=== PATIENT | female | born 1975 | race Caucasian/White ===

== ENCOUNTER 2019-07-30 20:42 | Emergency (ER) | payer BC ==
--- NOTE | 2019-07-30 21:02 | ERPHSYRPT ---
- History of Present Illness Time Seen by Provider: 07/30/19 20:50 Historian: patient, family Exam Limitations: clinical condition Physician History: 43 y/o white female presents with 2 day h/o epigastric abd pain with radiation into back. pt seen by pcp and flu ruled out. pt has never had an abd surgery. no prior episodes. no n/v/d. not related to food intake. pt has a gb u/s scheduled next friday. Timing/Duration: day(s) (2) Quality: aching, pressure Abdominal Pain Onset Location: epigastric Pain Radiation: back Severity of Pain-Max: moderate Severity of Pain-Current: moderate Modifying Factors: Improves With: nothing Previous symptoms: no prior history Allergies/Adverse Reactions: No Known Drug Allergies Allergy (Verified 07/30/19 21:09) Hx Influenza Vaccination/Date Given: Yes Hx Pneumococcal Vaccination/Date Given: No - Review of Systems Constitutional: No Symptoms Eyes: No Symptoms Ears, Nose, & Throat: No Symptoms Respiratory: No Symptoms Cardiac: No Symptoms Abdominal/Gastrointestinal: Abdominal Pain Genitourinary Symptoms: No Symptoms Musculoskeletal: No Symptoms Skin: No Symptoms Neurological: No Symptoms Psychological: No Symptoms Endocrine: No Symptoms Hematologic/Lymphatic: No Symptoms Immunological/Allergic: No Symptoms All Other Systems: Reviewed and Negative - Past Medical History Pertinent Past Medical History: Yes Neurological History: No Pertinent History ENT History: No Pertinent History Cardiac History: No Pertinent History Respiratory History: No Pertinent History Endocrine Medical History: No Pertinent History Musculoskeletal History: No Pertinent History GI Medical History: No Pertinent History History: No Pertinent History Psycho-Social History: No Pertinent History Female Reproductive Disorders: No Pertinent History - Past Surgical History Past Surgical History: No Neuro Surgical History: No Pertinent History Cardiac: No Pertinent History Respiratory: No Pertinent History Gastrointestinal: No Pertinent History Genitourinary: No Pertinent History Musculoskeletal: No Pertinent History Female Surgical History: No Pertinent History - Social History Smoking Status: Never smoker Exposure to second hand smoke: No Drug Use: none Patient Lives Alone: No - Nursing Vital Signs Nursing Vital Signs: Initial Vital Signs Temperature 98.8 F 07/30/19 20:49 Pulse Rate 118 H 07/30/19 20:49 Respiratory Rate 20 07/30/19 20:49 Blood Pressure 126/85 07/30/19 20:49 O2 Sat by Pulse Oximetry 84 L 07/30/19 20:49 Pain Scale Pain Intensity 2 - Physical Exam General Appearance: moderate distress, alert, anxiety Eye Exam: PERRL/EOMI, eyes nml inspection Ears, Nose, Throat Exam: normal ENT inspection, moist mucous membranes Neck Exam: normal inspection, non-tender, supple, full range of motion Respiratory Exam: normal breath sounds, lungs clear, airway intact, No chest tenderness, No respiratory distress Cardiovascular Exam: regular rate/rhythm, normal heart sounds, normal peripheral pulses Gastrointestinal/Abdomen Exam: soft, normal bowel sounds, tenderness (epigastric ), No guarding Pelvic Exam: not done Rectal Exam: not done Back Exam: normal inspection, normal range of motion, No CVA tenderness, No vertebral tenderness Extremity Exam: normal inspection, normal range of motion, pelvis stable Neurologic Exam: alert, oriented x 3, 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, 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 Skin Exam: normal color, warm, dry Lymphatic Exam: No adenopathy SpO2 Interpretation: normal O2 Delivery: Room Air - Course Nursing assessment & vital signs reviewed: Yes Ordered Tests: Active Orders 24 hr Category Date Time Status IV Insertion STAT Care 07/30/19 21:03 Active ABDOMEN AND PELVIS W/0 CONTRAS [CT] Stat Exams 07/30/19 21:05 Taken AMYLASE Stat Lab 07/30/19 21:10 Completed CBC W DIFF Stat Lab 07/30/19 21:10 Completed CMP Stat Lab 07/30/19 21:10 Completed CULTURE,URINE Stat Lab 07/30/19 20:52 Received HCG QUALITATIVE,SERUM Stat Lab 07/30/19 21:10 Completed LIPASE Stat Lab 07/30/19 21:10 Completed Lactic Acid Stat Lab 07/30/19 21:03 Results UA W/RFX UR CULTURE Stat Lab 07/30/19 20:52 Completed Medication Summary Discontinued Medications Generic Name Dose Route Start Last Admin Trade Name Freq PRN Reason Stop Dose Admin Al Hydrox/Mg Hydrox/Simethicone Confirm 07/30/19 21:09 Maalox Es 30 Ml Unit Dose Administered 07/30/19 21:10 Dose 30 ml .ROUTE .STK-MED ONE Hydromorphone HCl 1 mg 07/30/19 21:03 07/30/19 21:14 Hydromorphone 1 Mg/Ml Ampule IV 07/30/19 21:04 1 mg STAT ONE Administration Hydromorphone HCl Confirm 07/30/19 21:08 Hydromorphone 1 Mg/Ml Ampule Administered 07/30/19 21:09 Dose 1 mg .ROUTE .STK-MED ONE Sodium Chloride 1,000 mls @ 999 mls/hr 07/30/19 21:03 07/30/19 22:13 Sodium Chloride 0.9% 1000 Ml IV 07/30/19 22:03 Infused .Q1H1M STA Infusion Sodium Chloride Confirm 07/30/19 21:09 Sodium Chloride 0.9% 1000 Ml Administered 07/30/19 21:10 Dose 1,000 mls @ ud .ROUTE .STK-MED ONE Sodium Chloride 1,000 mls @ 999 mls/hr 07/30/19 22:05 07/30/19 22:12 Sodium Chloride 0.9% 1000 Ml IV 07/30/19 23:05 999 mls/hr .Q1H1M STA Administration Sodium Chloride Confirm 07/30/19 22:11 Sodium Chloride 0.9% 1000 Ml Administered 07/30/19 22:12 Dose 1,000 mls @ ud .ROUTE .STK-MED ONE Lidocaine HCl Confirm 07/30/19 21:09 Xylocaine Hcl Viscous * Administered 07/30/19 21:10 Dose 15 ml .ROUTE .STK-MED ONE Magnesium Hydroxide 45 ml 07/30/19 21:03 07/30/19 21:15 Gi Cocktail 45 Ml (Maalox/Lidocaine) PO 07/30/19 21:04 45 ml STAT ONE Administration Ondansetron HCl 4 mg 07/30/19 21:03 07/30/19 21:14 Zofran 4 Mg/2 Ml Vial IV 07/30/19 21:04 4 mg STAT ONE Administration Ondansetron HCl Confirm 07/30/19 21:08 Zofran 4 Mg/2 Ml Vial Administered 07/30/19 21:09 Dose 4 mg .ROUTE .STK-MED ONE Lab/Rad Data: Laboratory Result Diagrams 07/30/19 21:10 07/30/19 21:10 Laboratory Results 07/30/19 07/30/19 07/30/19 Range/Units 21:10 21:10 21:10 WBC 12.8 H (4.0-10.5) K/mm3 RBC 4.41 (4.1-5.4) M/mm3 Hgb 14.0 (12.0-16.0) gm/dl Hct 41.8 (35-47) % MCV 94.8 (78-100) fl MCH 31.7 (26-32) pg MCHC 33.5 (32-36) g/dl RDW 12.0 (11.5-14.0) % Plt Count 227 (150-450) K/mm3 MPV 10.2 (7.5-11.0) fl Gran % 68.4 H (36.0-66.0) % Eos # (Auto) 0.17 (0-0.5) Absolute Lymphs (auto) 2.62 (1.0-4.6) Absolute Monos (auto) 1.22 (0.0-1.3) Lymphocytes % 20.5 L (24.0-44.0) % Monocytes % 9.6 (0.0-12.0) % Eosinophils % 1.3 (0.00-5.0) % Basophils % 0.2 (0.0-0.4) % Absolute Granulocytes 8.74 H (1.4-6.9) Basophils # 0.02 (0-0.4) Sodium 139 (137-145) mmol/L Potassium 3.4 L (3.5-5.1) mmol/L Chloride 103 (98-107) mmol/L Carbon Dioxide 26 (22-30) mmol/L Anion Gap 13.8 (5-15) MEQ/L BUN 9 (7-17) mg/dL Creatinine 0.65 (0.52-1.04) mg/dL Estimated GFR > 60.0 ML/MIN Glucose 87 (74-106) mg/dL Lactic Acid (0.4-2.0) Calcium 9.2 (8.4-10.2) mg/dL Total Bilirubin 1.10 (0.2-1.3) mg/dL AST 31 (14-36) U/L ALT 24 (0-35) U/L Alkaline Phosphatase 76 (38-126) U/L Serum Total Protein 8.7 H (6.3-8.2) g/dL Albumin 4.7 (3.5-5.0) g/dL Amylase 286 H (30-110) U/L Lipase 1680 H (23-300) U/L Serum , Qual NEGATIVE (Negative) Urine Color (YELLOW) Urine Appearance (CLEAR) Urine pH (5-6) Ur Specific Henderson (1.005-1.025) Urine Protein (Negative) Urine Ketones (NEGATIVE) Urine Blood (0-5) Mike/ul Urine Nitrite (NEGATIVE) Urine Bilirubin (NEGATIVE) Urine Urobilinogen (0-1) mg/dL Ur Leukocyte Esterase (NEGATIVE) Urine WBC (Auto) (0-5) /HPF Urine RBC (Auto) (0-2) /HPF U Epithel Cells (Auto) (FEW) /HPF Urine Bacteria (Auto) (NEGATIVE) /HPF Urine Mucus (Auto) (NEGATIVE) /HPF Urine Culture Reflexed (NO) Urine Glucose (NEGATIVE) mg/dL 07/30/19 07/30/19 Range/Units 21:03 20:52 WBC (4.0-10.5) K/mm3 RBC (4.1-5.4) M/mm3 Hgb (12.0-16.0) gm/dl Hct (35-47) % MCV (78-100) fl MCH (26-32) pg MCHC (32-36) g/dl RDW (11.5-14.0) % Plt Count (150-450) K/mm3 MPV (7.5-11.0) fl Gran % (36.0-66.0) % Eos # (Auto) (0-0.5) Absolute Lymphs (auto) (1.0-4.6) Absolute Monos (auto) (0.0-1.3) Lymphocytes % (24.0-44.0) % Monocytes % (0.0-12.0) % Eosinophils % (0.00-5.0) % Basophils % (0.0-0.4) % Absolute Granulocytes (1.4-6.9) Basophils # (0-0.4) Sodium (137-145) mmol/L Potassium (3.5-5.1) mmol/L Chloride (98-107) mmol/L Carbon Dioxide (22-30) mmol/L Anion Gap (5-15) MEQ/L BUN (7-17) mg/dL Creatinine (0.52-1.04) mg/dL Estimated GFR ML/MIN Glucose (74-106) mg/dL Lactic Acid 2.2 H (0.4-2.0) Calcium (8.4-10.2) mg/dL Total Bilirubin (0.2-1.3) mg/dL AST (14-36) U/L ALT (0-35) U/L Alkaline Phosphatase (38-126) U/L Serum Total Protein (6.3-8.2) g/dL Albumin (3.5-5.0) g/dL Amylase (30-110) U/L Lipase (23-300) U/L Serum , Qual (Negative) Urine Color DARK YELLOW (YELLOW) Urine Appearance CLOUDY (CLEAR) Urine pH 7.0 (5-6) Ur Specific Henderson 1.029 (1.005-1.025) Urine Protein 30 (Negative) Urine Ketones NEGATIVE (NEGATIVE) Urine Blood NEGATIVE (0-5) Mike/ul Urine Nitrite NEGATIVE (NEGATIVE) Urine Bilirubin NEGATIVE (NEGATIVE) Urine Urobilinogen 2 (0-1) mg/dL Ur Leukocyte Esterase TRACE (NEGATIVE) Urine WBC (Auto) 0-2 (0-5) /HPF Urine RBC (Auto) 0-2 (0-2) /HPF U Epithel Cells (Auto) MODERATE (FEW) /HPF Urine Bacteria (Auto) NONE (NEGATIVE) /HPF Urine Mucus (Auto) SLIGHT (NEGATIVE) /HPF Urine Culture Reflexed YES (NO) Urine Glucose NEGATIVE (NEGATIVE) mg/dL - Progress Progress: improved Progress Note: 07/30/19 23:10 ct abd/pelvis-mild peripancreatic stranding. right ovarian cyst. trace free fluid i had long discussion with patient and family. we told pt we do not have beds and pt would require transfer. pt stated she did not want transfer. she wants to go home. i d/w pt and spouse regarding her dx, risks of not being an in hospital pt including but not limited to worsening condition, possible . i also discussed with her the benefits of inpt tx including pain and nausea control, ivf, repeat labs. she will sign ama form. i will send pt home with rx for zofran, dilaudid tabs and rx for repeat labs in 24 hours. pt was made aware to consume only a clear liquid diet for 24 hours. she is to return to ED for worsening sx. Counseled pt/family regarding: lab results, diagnosis, need for follow-up, rad results - Departure Departure Disposition: Home Clinical Impression: Pancreatitis Condition: Stable Critical Care Time: No Referrals: RJ DOWELL [Primary Care Provider] - Additional Instructions: clear liquids only for 24 hours. return to ED for worsening symptoms. return tomorrow for repeat lab draw. Prescriptions: Ondansetron HCl [Zofran] 4 mg PO TID PRN #10 tablet PRN Reason: Nausea/Vomiting
[2019-07-30] MEDS ORDERED: Zofran 4 MG/2 ML VIAL IV ONE (21:03)
[2019-07-30] MEDS ORDERED: GI COCKTAIL 45 ML (Maalox/Lidocaine) PO ONE (21:03)
[2019-07-30] MEDS ORDERED: Sodium Chloride 0.9% 1000 ML 1,000 ML IV STA ×2 (21:03→22:05)
[2019-07-30] MEDS ORDERED: Hydromorphone 1 mg/ml Ampule IV ONE ×2 (21:03→23:29)
[2019-07-30] MEDS ORDERED: Zofran 4 MG/2 ML VIAL ONE (21:08)
[2019-07-30] MEDS ORDERED: Hydromorphone 1 mg/ml Ampule ONE ×2 (21:08→23:34)
[2019-07-30] MEDS ORDERED: Sodium Chloride 0.9% 1000 ML 1,000 ML ONE ×2 (21:09→22:11)
[2019-07-30] MEDS ORDERED: MAALOX ES 30 ML UNIT DOSE ONE (21:09)
[2019-07-30] MEDS ORDERED: XYLOCAINE HCl Viscous ONE (21:09)
[2019-07-30 21:15] LABS: Lactic Acid 2.2 (0.4-2.0)
[2019-07-30 21:23] LABS: Absolute Neutrophil Ct (ANC) 8.74 (1.4-6.9); BASOPHIL % 0.2 % (0.0-0.4); Basophil (Absolute #) 0.02 (0-0.4); Eosinophil % 1.3 % (0.00-5.0); Eosinophil (Absolute #) 0.17 (0-0.5); Hematocrit 41.8 % (35-47); Lymphocyte (Absolute #) 2.62 (1.0-4.6); Lymphocytes % 20.5 % (24.0-44.0); Mean Cell Volume 94.8 fl (78-100); Mean Corpuscular Hemoglobin 31.7 pg (26-32); Mean Corpuscular Hgb Concent. 33.5 g/dl (32-36); Mean Platelet Volume 10.2 fl (7.5-11.0); Monocyte (Absolute #) 1.22 (0.0-1.3); Monocytes % 9.6 % (0.0-12.0); Neutrophil % 68.4 % (36.0-66.0); Platelet Count 227 K/mm3 (150-450); Red Blood Count 4.41 M/mm3 (4.1-5.4); White Blood Count 12.8 K/mm3 (4.0-10.5)
[2019-07-30 21:28] LABS: Appearance CLOUDY (CLEAR); Bilirubin NEGATIVE (NEGATIVE); Blood NEGATIVE Ery/ul (0-5); Epithelial Cells MODERATE /HPF (FEW); Glucose NEGATIVE (NEGATIVE); Ketones NEGATIVE (NEGATIVE); Leukocyte Esterase TRACE (NEGATIVE); Mucus SLIGHT /HPF (NEGATIVE); Nitrite NEGATIVE (NEGATIVE); Protein,Urine Dip 30 (Negative); RBC 0-2 /HPF (0-2); Specific Gravity 1.029 (1.005-1.025); Urobilinogen 2 mg/dL (0-1); WBC 0-2 /HPF (0-5)
[2019-07-30 21:34] LABS: ALBUMIN 4.7 g/dL (3.5-5.0); ALKALINE PHOSPHATASE 76 U/L (38-126); AMYLASE 286 U/L (30-110); ANION GAP 13.8 MEQ/L (5-15); BLOOD UREA NITROGEN 9 mg/dL (7-17); CHLORIDE 103 mmol/L (98-107); Calcium 9.2 mg/dL (8.4-10.2); Carbon Dioxide 26 mmol/L (22-30); Creatinine 1 0.65 mg/dL (0.52-1.04); Glucose 87 mg/dL (74-106); LIPASE 1680 U/L (23-300); Potassium 3.4 mmol/L (3.5-5.1); SGOT/AST 31 U/L (14-36); SGPT/ALT 24 U/L (0-35); SODIUM 139 mmol/L (137-145); Total Protein 8.7 g/dL (6.3-8.2)
[2019-07-30] MEDS ORDERED: Dilaudid 4 MG Tab PO PRN (23:27)
[2019-07-30 23:31] VITALS: BP 116/72
[2019-07-30] MEDS ORDERED: Dilaudid 4 MG Tab ONE (23:35)
[2019-07-30 23:54] VITALS: PULSE 101; O2SAT 98
--- NOTE | 2019-07-31 07:07 | XRAY ---
Indication: Epigastric pain 2 days. Loss of appetite. Multiple contiguous axial images obtained through the abdomen and pelvis without contrast as ordered. Comparison: None Lung bases demonstrates minimal bilateral dependent atelectasis. No infiltrate or effusion. Heart is not enlarged. Noncontrasted stomach and bowel loops appear nonobstructed. Normal appendix. Radiopacity throughout the colon presumed ingested medication/placement. There is moderate scattered colonic fecal debris throughout. Uterus demonstrates IUD in situ. 2.2 cm right ovary cyst. Tiny cul-de-sac free fluid presumed physiologic from rupture/leaking cyst. No free air. Remaining liver, gallbladder, pancreas, spleen, adrenal glands, kidneys, ureters, bladder, uterus, and aorta appear unremarkable for noncontrast exam. Osseous structures intact. Impression: 1. Diffuse fecal stasis without obstruction. 2. 2.2 cm right ovary cyst and tiny cul-de-sac fluid presumed physiologic. 3. Remaining CT abdomen/pelvis without contrast exam is negative. Comment: Preliminary interpretation was made by [facility]. No critical discrepancy.
== END 2019-07-30 23:58 | disposition home or self-care (01) ==
LOC: ED 20:42
DX: K85.90 Acute pancreatitis without necrosis or infection, unspecified (principal)
CPT/HCPCS: 36000; 36415; 74176; 80053; 81001; 81025; 82150; 83605; 83690; 85025; 87086; 96374; 96375; 96376; 99284; J1170; J2405; A9270-GY

== ENCOUNTER 2019-08-27 05:45 | Day surgery (SDC) | payer BC ==
[2019-08-27] MEDS ORDERED: Lactated Ringers 1,000 ML IV SCH (06:30)
[2019-08-27] MEDS ORDERED: DIPRIVAN 200 MG/20 ML IV ONE (07:26)
[2019-08-27] MEDS ORDERED: Ketamine HCl 50 MG/ML ONE (07:26)
--- NOTE | 2019-08-27 08:12 | OP ---
SURGERY DATE/TIME: 08/27/201928 PREOPERATIVE DIAGNOSIS: Epigastric pain. POSTOPERATIVE DIAGNOSIS: Mild gastritis and small island of Goldsmith's esophagus. PROCEDURE: Esophagogastroduodenoscopy with cold forceps biopsy. SURGEON: Dr. Bishop. ANESTHESIA: Medications were given by the anesthesia department. HISTORY: The patient is a 43 year old white female presenting now for endoscopic evaluation. She has had epigastric pain. She was noted to have a slightly abnormal gallbladder HIDA scan with ejection fraction of 25%. We felt that there may be other reasons for her pain and felt that she needed endoscopic evaluation. The patient was apprised of the risks of the procedure including the risk of perforation, phlebitis, untoward reaction to medication, bleeding and missed lesions. The patient verbalized her understanding and desired to have the procedure performed. DESCRIPTION OF PROCEDURE: The patient was given the medications by the anesthesia department. She had continuous pulse oximetry, ECG monitoring, intermittent blood pressure monitoring and tidal CO2 monitoring during the examination. She was placed in the left lateral decubitus position. A bite block was placed and the flexible Olympus gastroscope was used to intubate the oropharynx. A view of the larynx was obtained and was normal. The scope was easily introduced in the esophagus which appeared normal to the gastroesophageal junction where there appeared to be a tongue of Goldsmith's type esophagus present. The scope was passed in the stomach where normal gastric rugal folds were seen and these distended nicely with insufflation of air. The scope was passed along the greater curvature of the stomach to the antrum. The pylorus was encountered and intubated. Duodenum inspected and found to be normal. The scope is withdrawn towards the stomach. Again, a retroflex view was obtained of the lesser curvature, fundus and cardia regions of the stomach and these appeared to be essentially normal. The scope was then redirected towards the gastric antrum where biopsies were obtained to rule out the presence of Helicobacter pylori-type organisms. Withdrawing from the gastroesophageal junction where biopsies were obtained to rule out any dysplasia and what appeared to be a Goldsmith's type metaplasia. The scope was then removed from the patient who tolerated the procedure well and was sent back to the hospital [facility] in good condition.
[2019-08-27 08:34] VITALS: O2SAT 99
[2019-08-27 08:35] VITALS: BP 110/67; PULSE 70
== END 2019-08-27 08:40 | disposition home or self-care (01) ==
LOC: SDC 05:45
PROVIDERS: ATTEND Family Medicine
DX: K29.70 Gastritis, unspecified, without bleeding (principal); K22.70 Barrett's esophagus without dysplasia; R10.13 Epigastric pain
CPT/HCPCS: 84703; 88305; 88312; J2704

== ENCOUNTER 2023-01-04 03:47 | Emergency (ER) | payer BC ==
[2023-01-04 04:32] LABS: Absolute Neutrophil Ct (ANC) 9.15 x10^3/uL (1.4-6.9); BASOPHIL % 0.3 % (0.0-0.4); Basophil (Absolute #) 0.04 x10^3/uL (0-0.4); Eosinophil % 1.3 % (0.00-5.0); Eosinophil (Absolute #) 0.16 x10^3/uL (0-0.5); Hemoglobin 14.6 g/dL (12.0-16.0); IMMATURE GRAN # 0.06 x10^3u/L (0.00-0.03); IMMATURE GRAN % 0.5 % (0.00-0.4); Lymphocyte (Absolute #) 1.86 x10^3/uL (1.0-4.6); Mean Cell Volume 93.1 fL (78-100); Mean Corpuscular Hemoglobin 31.6 pg (26-32); Mean Platelet Volume 9.7 fL (7.5-11.0); Monocyte (Absolute #) 1.09 x10^3/uL (0.0-1.3); Monocytes % 8.8 % (0.0-12.0); Neutrophil % 74.1 % (36.0-66.0); Platelet Count 255 x10^3/uL (150-450); Red Blood Count 4.62 x10^6/uL (4.1-5.4); Red Cell Distribution Width 11.9 % (11.5-14.0); White Blood Count 12.4 x10^3/uL (4.0-10.5)
[2023-01-04 04:39] LABS: Appearance Clear (Clear); Bacteria Rare /HPF (None Seen); Bilirubin Negative (Negative); Blood Negative (Negative); Epithelial Cells Rare /HPF (None Seen); Glucose, Urine Negative (Negative); Hyaline Casts NONE SEEN /LPF (0-2); Ketones 80 (Negative); Leukocyte Esterase Negative (Negative); Nitrite Negative (Negative); Ph 5.5 (4.6-8.0); Protein,Urine Dip Negative (Negative); RBC 0-2 /HPF (0-5); Specific Gravity 1.025 (1.005-1.030); WBC 0-2 /HPF (0-5)
[2023-01-04 04:41] LABS: ADD URINE CULTURE? NO (NO)
[2023-01-04] MEDS ORDERED: Hydromorphone 1 mg/ml Injection IV ONE (04:43)
[2023-01-04] MEDS ORDERED: Zofran 4 MG/2 ML VIAL IV ONE (04:43)
[2023-01-04] MEDS ORDERED: PROTONIX 40 MG IV IV ONE ×2 (04:43→04:53)
[2023-01-04] MEDS ORDERED: Sodium Chloride 0.9% 1000 ML 1,000 ML IV STA ×2 (04:43→05:55)
--- NOTE | 2023-01-04 04:43 | ERPHSYRPT ---
- History of Present Illness Time Seen by Provider: 01/04/23 04:05 Historian: patient, family Exam Limitations: no limitations Patient Subjective Stated Complaint: pt states I have had this pain since friday. I went to [facility] yesterday and waiting the lab results Triage Nursing Assessment: pt ambulated into the er; pt is axo x4; pt is tearful and irritable; c/o epigastric pain; denies V/D; c/o nausea; hypertension; skin PDW; no respiratory distress present Physician History: This is a 47-year-old white female patient of nurse practitioner Armando who has had epigastric Michele pain for 3 days. Patient has a history of gastroesophageal reflux disease as well as anxiety/depression symptoms. 3 days ago, patient began having the cramping epigastric abdominal pain with nausea but no vomiting or diarrhea. She denies shortness of breath. She denies chest pain. Yesterday, 01/03/2023, patient was seen in [facility] where she was found to have an amylase of 113 and lipase of 413. Patient still has her gallbladder in place. The pain was getting worse so she came into the emergency department for evaluation and management. Timing/Duration: day(s) (3) Activities at Onset: none Quality: sharpness, stabbing Abdominal Pain Onset Location: epigastric Pain Radiation: no radiation Severity of Pain-Max: moderate Severity of Pain-Current: moderate Modifying Factors: Improves With: other (Nausea without vomiting) Associated Symptoms: loss of appetite, nausea, No chest pain, No fever/chills, No vomiting Previous symptoms: no prior history, no recent treatment Allergies/Adverse Reactions: No Known Drug Allergies Allergy (Verified 01/04/23 03:55) Home Medications: Omeprazole 40 mg PO DAILY 10/17/21 [History] Bupropion HCl Xl 150 mg [Wellbutrin XL 150 MG] 150 mg PO DAILY 01/04/23 [History] Hx Tetanus, Diphtheria Vaccination/Date Given: No Hx Influenza Vaccination/Date Given: Yes Hx Pneumococcal Vaccination/Date Given: No Travel Risk - International Travel Have you traveled outside of the country in past 3 weeks: No - Coronavirus Screening Are you exhibiting any of the following symptoms?: No Close contact with a COVID-19 positive Pt in past 14-21 Days: No - Vaccine Status Have you recieved a Covid-19 vaccination: No - Review of Systems Constitutional: No Symptoms Eyes: No Symptoms Ears, Nose, & Throat: No Symptoms Respiratory: No Symptoms Cardiac: No Symptoms Abdominal/Gastrointestinal: Abdominal Pain (Epigastric pain), Nausea, Appetite Changes, No Vomiting, No Diarrhea Genitourinary Symptoms: No Symptoms Musculoskeletal: No Symptoms Skin: No Symptoms Neurological: No Symptoms Psychological: No Symptoms Endocrine: No Symptoms Hematologic/Lymphatic: No Symptoms Immunological/Allergic: No Symptoms All Other Systems: Reviewed and Negative - Past Medical History Pertinent Past Medical History: Yes Neurological History: No Pertinent History ENT History: No Pertinent History Cardiac History: No Pertinent History Respiratory History: No Pertinent History Endocrine Medical History: No Pertinent History Musculoskeletal History: No Pertinent History GI Medical History: Diverticulitis, GERD, Pancreatitis History: No Pertinent History Psycho-Social History: Depression Female Reproductive Disorders: Other Other Medical History: sludge in gallbladder, iud - Past Surgical History Past Surgical History: Yes Neuro Surgical History: No Pertinent History Cardiac: No Pertinent History Respiratory: No Pertinent History Gastrointestinal: No Pertinent History Genitourinary: No Pertinent History Musculoskeletal: No Pertinent History Female Surgical History: Other Other Surgical History: LEEP , cscope - Social History Smoking Status: Never smoker Exposure to second hand smoke: No Drug Use: none Patient Lives Alone: No - Female History Hx Now: No - Nursing Vital Signs Nursing Vital Signs: Initial Vital Signs Temperature 97.1 F 01/04/23 03:56 Pulse Rate 114 H 01/04/23 03:56 Respiratory Rate 20 01/04/23 03:56 Blood Pressure 174/113 01/04/23 03:56 O2 Sat by Pulse Oximetry 98 01/04/23 03:56 Pain Scale Pain Intensity 4 - Physical Exam General Appearance: mild distress, alert, anxiety Eye Exam: PERRL/EOMI, eyes nml inspection Ears, Nose, Throat Exam: normal ENT inspection, moist mucous membranes Neck Exam: normal inspection, non-tender, supple, full range of motion Respiratory Exam: normal breath sounds, lungs clear, airway intact, No chest te nderness, No respiratory distress Cardiovascular Exam: tachycardia Gastrointestinal/Abdomen Exam: soft, normal bowel sounds, tenderness (Epigastric), guarding (Epigastric to palpation), No rebound Pelvic Exam: not done Rectal Exam: not done Back Exam: normal inspection, normal range of motion, No CVA tenderness, No vertebral tenderness Extremity Exam: normal inspection, normal range of motion, pelvis stable Neurologic Exam: alert, oriented x 3, cooperative, 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 as tested, normal mood/affect, nml cerebellar function, nml station & gait, sensation nml Skin Exam: normal color, warm, dry Lymphatic Exam: No adenopathy SpO2 Interpretation: normal SpO2: 97 O2 Delivery: Room Air - Course Nursing assessment & vital signs reviewed: Yes Ordered Tests: Active Orders 24 hr Category Date Time Status IV Insertion STAT Care 01/04/23 04:43 Active ABDOMEN AND PELVIS W/0 CONTRAS [CT] Stat Exams 01/04/23 04:20 Completed AMYLASE Stat Lab 01/04/23 04:29 Completed CBC W DIFF Stat Lab 01/04/23 04:29 Completed CMP Stat Lab 01/04/23 04:29 Completed LIPASE Stat Lab 01/04/23 04:29 Completed UA W/RFX UR CULTURE Stat Lab 01/04/23 04:29 Completed Medication Summary Discontinued Medications Generic Name Dose Route Start Last Admin Trade Name Octavioq PRN Reason Stop Dose Admin Hydromorphone HCl 1 mg 01/04/23 04:43 01/04/23 04:57 Hydromorphone 1 Mg/1ml Inj IV 01/04/23 04:44 1 mg STAT ONE Administration Hydromorphone HCl Confirm 01/04/23 04:53 Hydromorphone 1 Mg/1ml Inj Administered 01/04/23 04:54 Dose 1 mg .ROUTE .STK-MED ONE Sodium Chloride 1,000 mls @ 999 mls/hr 01/04/23 04:43 01/04/23 04:56 Sodium Chloride 0.9% 1000 Ml IV 01/04/23 05:43 999 mls/hr .Q1H1M STA Administration Sodium Chloride Confirm 01/04/23 04:54 Sodium Chloride 0.9% 1000 Ml Administered 01/04/23 04:55 Dose 1,000 mls @ ud .ROUTE .STK-MED ONE Ondansetron HCl 4 mg 01/04/23 04:43 01/04/23 04:56 Ondansetron Hcl 4 Mg/2 Ml Vial IV 01/04/23 04:44 4 mg STAT ONE Administration Ondansetron HCl Confirm 01/04/23 04:53 Ondansetron Hcl 4 Mg/2 Ml Vial Administered 01/04/23 04:54 Dose 4 mg .ROUTE .STK-MED ONE Pantoprazole Sodium 40 mg 01/04/23 04:43 01/04/23 04:56 Pantoprazole 40 Mg Vial IV 01/04/23 04:44 40 mg STAT ONE Administration Pantoprazole Sodium Confirm 01/04/23 04:53 Pantoprazole 40 Mg Vial Administered 01/04/23 04:54 Dose 40 mg IV .STK-MED ONE Lab/Rad Data: Laboratory Result Diagrams 01/04/23 04:29 01/04/23 04:29 Laboratory Results 01/04/23 01/04/23 01/04/23 Range/Units 04:29 04:29 04:29 WBC 12.4 H (4.0-10.5) x10^3/uL RBC 4.62 (4.1-5.4) x10^6/uL Hgb 14.6 (12.0-16.0) g/dL Hct 43.0 (35-47) % MCV 93.1 (78-100) fL MCH 31.6 (26-32) pg MCHC 34.0 (32-36) g/dL RDW 11.9 (11.5-14.0) % Plt Count 255 (150-450) x10^3/uL MPV 9.7 (7.5-11.0) fL Gran % 74.1 H (36.0-66.0) % Immature Gran % (Auto) 0.5 H (0.00-0.4) % Nucleat RBC Rel Count 0.0 (0.00-0.1) % Eos # (Auto) 0.16 (0-0.5) x10^3/uL Immature Gran # (Auto) 0.06 H (0.00-0.03) x10^3u/L Absolute Lymphs (auto) 1.86 (1.0-4.6) x10^3/uL Absolute Monos (auto) 1.09 (0.0-1.3) x10^3/uL Absolute Nucleated RBC 0.00 (0.00-0.01) x10^3u/L Lymphocytes % 15.0 L (24.0-44.0) % Monocytes % 8.8 (0.0-12.0) % Eosinophils % 1.3 (0.00-5.0) % Basophils % 0.3 (0.0-0.4) % Absolute Granulocytes 9.15 H (1.4-6.9) x10^3/uL Basophils # 0.04 (0-0.4) x10^3/uL Sodium 136 L (137-145) mmol/L Potassium 3.8 (3.5-5.1) mmol/L Chloride 99 (98-107) mmol/L Carbon Dioxide 23 (22-30) mmol/L Anion Gap 17.6 H (5-15) MEQ/L BUN 12 (7-17) mg/dL Creatinine 0.62 (0.52-1.04) mg/dL Estimated GFR > 60.0 ML/MIN Glucose 132 H (74-106) mg/dL Calcium 9.0 (8.4-10.2) mg/dL Total Bilirubin 1.20 (0.2-1.3) mg/dL AST 40 H (14-36) U/L ALT 38 H (0-35) U/L Alkaline Phosphatase 87 (38-126) U/L Serum Total Protein 8.7 H (6.3-8.2) g/dL Albumin 4.6 (3.5-5.0) g/dL Amylase 157 H (30-110) U/L Lipase 984 H (23-300) U/L Urine Color Dark Yellow A (Yellow) Urine Appearance Clear (Clear) Urine pH 5.5 (4.6-8.0) Ur Specific [place] 1.025 (1.005-1.030) Urine Protein Negative (Negative) Urine Glucose (UA) Negative (Negative) mg/dL Urine Ketones 80 A (Negative) Urine Blood Negative (Negative) Urine Nitrite Negative (Negative) Urine Bilirubin Negative (Negative) Urine Urobilinogen 1.0 A (0.2) mg/dL Ur Leukocyte Esterase Negative (Negative) U Hyaline Cast (Auto) NONE SEEN (0-2) /LPF Urine Microscopic RBC 0-2 (0-5) /HPF Urine Microscopic WBC 0-2 (0-5) /HPF Ur Epithelial Cells Rare (None Seen) /HPF Urine Bacteria Rare A (None Seen) /HPF Urine Culture Reflexed NO (NO) - Progress Progress: improved, pain not gone completely Progress Note: 01/04/23 05:22 This patient's medical issue is at least moderate complexity. We are awaiting the results of her CAT scan and she may require observation and her level of complexity would increase to high complexity. The complexity of the work-up and the work-up performed is based on the review of the patient's past medical history, review of the patient's recent quick care work-up and laboratory study results, medication review, drug allergy review, history of present illness and physical findings on examination. This patient work-up includes CBC, CMP, urinalysis, amylase, lipase, CT scan of the abdomen pelvis without contrast. The patient appears to have pancreatitis. Her repeat amylase increased from 100 1357. Her lipase increased from 413-984. Her AST and ALT are slightly elevated. Patient has a normal total bilirubin and a normal alkaline phosphat ase level. We will await the results of her CAT scan of abdomen pelvis to determine final disposition. 01/04/23 05:54 The patient has no radiographic evidence of acute pancreatitis on CAT scan of the abdomen pelvis. We will discharge this patient home with instructions to decrease the diet to clear liquid to full liquid diet. We will send a prescription of Zofran and pain medication to her pharmacy. She is to call her primary care doctor on 01/06/2023 for further evaluation and management. She is to return to the emergency department if her symptoms have not improved or worsen. Counseled pt/family regarding: lab results, diagnosis, rad results Medical Desision Making - Independent Historian Additional History obtained from: Spouse - Diagnostic Testing Diagnostic test were ordered, analyzed, and reviewed by me: Yes Radiological Interpretation: Reviewed by me, Teleradiologist Report - Risk of complications The pt has a mod risk of morbidity or mortality based on: Need for prescription drug management - Departure Clinical Impression: Pancreatitis, Mild dehydration Condition: Stable Critical Care Time: No Referrals: LINDA BENDER NP [Primary Care Provider] - Follow up/PCP as directed Additional Instructions: Clear liquid to full liquid diet only. Avoid fatty greasy spicy foods. Drink plenty of clear liquids. Use your nausea medicine and pain medicine as needed. Return to the emergency department if symptoms worsen. Follow-up with your primary care physician on 01/06/2023 for further evaluation and management. Prescriptions: Ondansetron ODT 4 MG [Zofran Odt 4 mg] 4 mg PO Q6H PRN PRN #10 tablet PRN Reason: Vomiting Hydrocodone/Acetaminophen [Hydrocodone-Acetamn 7.5-325/15] 10 ml PO Q8H PRN PRN #120 ml MDD 30 ml PRN Reason: Moderate To Severe Pain
[2023-01-04 04:47] LABS: ALBUMIN 4.6 g/dL (3.5-5.0); ALKALINE PHOSPHATASE 87 U/L (38-126); AMYLASE 157 U/L (30-110); ANION GAP 17.6 MEQ/L (5-15); BLOOD UREA NITROGEN 12 mg/dL (7-17); CHLORIDE 99 mmol/L (98-107); Carbon Dioxide 23 mmol/L (22-30); Creatinine 1 0.62 mg/dL (0.52-1.04); EST GLOMERULAR FILTRATION RATE > 60.0 ML/MIN; Glucose 132 mg/dL (74-106); LIPASE 984 U/L (23-300); Potassium 3.8 mmol/L (3.5-5.1); SGOT/AST 40 U/L (14-36); SGPT/ALT 38 U/L (0-35); SODIUM 136 mmol/L (137-145); Total Protein 8.7 g/dL (6.3-8.2)
[2023-01-04] MEDS ORDERED: Zofran 4 MG/2 ML VIAL ONE (04:53)
[2023-01-04] MEDS ORDERED: Hydromorphone 1 mg/ml Injection ONE (04:53)
[2023-01-04] MEDS ORDERED: Sodium Chloride 0.9% 1000 ML 1,000 ML ONE ×2 (04:54→06:13)
[2023-01-04 05:24] VITALS: O2SAT 97
--- NOTE | 2023-01-04 05:48 | XRAY ---
CLINICAL HISTORY:pain COMPARISON:CT abdomen and pelvis dated 07/30/2019; TECHNIQUES:CT scan of the abdomen and pelvis was performed without oraI or IV contrast; FINDINGS: The liver is normal in size . No focal parenchymal abnormality. The portal vein, intrahepatic biliary radicals and the bile ducts are normal. The spleen, pancreas, adrenal glands are unremarkable. The kidneys are unremarkable. They are normal in size and shape. No calculi or hydronephrosis is seen. The gallbladder is normal. No pericholecystic fluid collection or radio dense calculi in the gall bladder. The ascending colon, the transverse colon, the descending colon, visualized small bowel loops are unremarkable. There is no evidence of significant enlargement of the mesenteric or retroperitoneal lymph nodes. The osseous structures in the lower rib cage and lumbar spine show no abnormality. The uterus and both oavries are within normal limits with no definite masses or cysts are seen. IUD is seen insitu. Small phleboli seen at the right lower pelvis likely calcified vein. IMPRESSION: No significant abnormality is noted. Electronically Signed by: Wicho Castaneda MD. (01/04/2023 04:41:58 MARITIME GUARD)
[2023-01-04 07:13] VITALS: BP 137/89; PULSE 92
== END 2023-01-04 07:13 | disposition home or self-care (01) ==
LOC: ED 03:47
DX: K85.90 Acute pancreatitis without necrosis or infection, unspecified (principal); E86.0 Dehydration; R10.13 Epigastric pain; R11.0 Nausea; Z79.891 Long term (current) use of opiate analgesic; Z79.899 Other long term (current) drug therapy
CPT/HCPCS: 36000; 36415; 74176; 80053; 81001; 82150; 83690; 85025; 96360; 96374; 96375; 99284; J1170; J2405

== ENCOUNTER 2023-04-04 22:51 | Emergency (ER) | payer BC ==
[2023-04-04 23:09] VITALS: TEMP 97.6
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
[2023-04-04] MEDS ORDERED: Sodium Chloride 0.9% 1000 ML 1,000 ML IV SCH (23:30)
[2023-04-04 23:45] LABS: Absolute Neutrophil Ct (ANC) 5.45 x10^3/uL (1.4-6.9); BASOPHIL % 0.9 % (0.0-0.4); Basophil (Absolute #) 0.07 x10^3/uL (0-0.4); Eosinophil % 6.7 % (0.00-5.0); Eosinophil (Absolute #) 0.55 x10^3/uL (0-0.5); Hematocrit 42.6 % (35-47); Hemoglobin 13.9 g/dL (12.0-16.0); IMMATURE GRAN # 0.04 x10^3u/L (0.00-0.03); IMMATURE GRAN % 0.5 % (0.00-0.4); Lymphocyte (Absolute #) 1.47 x10^3/uL (1.0-4.6); Lymphocytes % 17.9 % (24.0-44.0); Mean Corpuscular Hemoglobin 30.7 pg (26-32); Mean Corpuscular Hgb Concent. 32.6 g/dL (32-36); Mean Platelet Volume 9.9 fL (7.5-11.0); Monocyte (Absolute #) 0.64 x10^3/uL (0.0-1.3); Monocytes % 7.8 % (0.0-12.0); Neutrophil % 66.2 % (36.0-66.0); Platelet Count 227 x10^3/uL (150-450); Red Blood Count 4.53 x10^6/uL (4.1-5.4); Red Cell Distribution Width 12.2 % (11.5-14.0); White Blood Count 8.2 x10^3/uL (4.0-10.5)
[2023-04-05] LABS: ALBUMIN 4.8 g/dL (3.5-5.0); ALKALINE PHOSPHATASE 82 U/L (38-126); ANION GAP 13.8 MEQ/L (5-15); BLOOD UREA NITROGEN 19 mg/dL (7-17); CHLORIDE 101 mmol/L (98-107); Calcium 9.4 mg/dL (8.4-10.2); Carbon Dioxide 28 mmol/L (22-30); Creatinine 1 0.96 mg/dL (0.52-1.04); EST GLOMERULAR FILTRATION RATE > 60.0 ML/MIN; Glucose 102 mg/dL (74-106); Potassium 3.8 mmol/L (3.5-5.1); SGOT/AST 43 U/L (14-36); SGPT/ALT 44 U/L (0-35); SODIUM 139 mmol/L (137-145)
[2023-04-05] MEDS ORDERED: Sodium Chloride 0.9% 1000 ML 1,000 ML ONE (00:58)
--- NOTE | 2023-04-05 01:06 | XRAY ---
CLINICAL HISTORY:syncope COMPARISON:None. TECHNIQUE:Axial non-contrast CT scan of the brain was performed from the skull base to the high parietal region. Coronal and sagittal reconstructions were also obtained. FINDINGS: The visualized brain parenchyma shows normal appearance. [place]-white matter differentiation is maintained. No midline shifts or deformity. No intracerebral or extra axial hematoma. Normal size and configuration of the cerebral ventricles. Normal CT appearance of the posterior fossa structures namely the cerebellar hemispheres, brainstem and cerebellar peduncles. The IACs are unremarkable. The cerebello-pontine angles are clear. The osseous structures in the skull base are unremarkable. No definite calvarium fractures. The scanned paranasal sinuses are clear. IMPRESSION: [place]on-enhanced CT study for the brain is unremarkable. Electronically Signed by: Wicho Castaneda MD. (04/05/2023 00:04:28 MACHINE RECORDS UNITS SUPERVISOR)
[2023-04-05] MEDS ORDERED: Sodium Chloride 0.9% 1000 ML 1,000 ML IV STA (01:18)
[2023-04-05 01:19] LABS: Appearance Clear (Clear); Bacteria None Seen /HPF (None Seen); Bilirubin Negative (Negative); Blood Negative (Negative); Epithelial Cells None Seen /HPF (None Seen); Glucose, Urine Negative (Negative); Hyaline Casts NONE SEEN /LPF (0-2); Ketones Negative (Negative); Leukocyte Esterase Negative (Negative); Nitrite Negative (Negative); Ph 5.5 (4.6-8.0); Protein,Urine Dip Negative (Negative); RBC 0-2 /HPF (0-5); Specific Gravity 1.015 (1.005-1.030); WBC 0-2 /HPF (0-5)
[2023-04-05 01:22] LABS: ADD URINE CULTURE? NO (NO)
[2023-04-05 02:32] VITALS: BP 109/63; PULSE 82; RESP 16; O2SAT 98
--- NOTE | 2023-04-05 07:14 | XRAY ---
Indication: Syncope. Comparison: None AP/lateral chest demonstrates normal heart, lungs, and bony thorax.
== END 2023-04-05 02:32 | disposition home or self-care (01) ==
LOC: ED 22:51
DX: R55 Syncope and collapse (principal); F41.9 Anxiety disorder, unspecified; R53.1 Weakness; R07.9 Chest pain, unspecified; Z79.899 Other long term (current) drug therapy; Z28.310 Unvaccinated for COVID-19
CPT/HCPCS: 36415; 70450; 71046; 80053; 81001; 82947; 83735; 84484; 85025; 93005; 99284

== ENCOUNTER 2023-07-13 19:51 | Emergency (ER) | payer BC ==
[2023-07-13] MEDS ORDERED: Sodium Chloride 0.9% 1000 ML 1,000 ML IV STA (20:18)
[2023-07-13] MEDS ORDERED: MORPHINE SULFATE 4 MG INJ IV ONE ×2 (20:18→21:07)
[2023-07-13] MEDS ORDERED: Zofran 4 MG/2 ML VIAL IV ONE (20:18)
[2023-07-13] MEDS ORDERED: PROTONIX 40 MG IV IV ONE ×2 (20:18→20:23)
[2023-07-13 20:22] VITALS: TEMP 97.9; O2SAT 97
[2023-07-13] MEDS ORDERED: Zofran 4 MG/2 ML VIAL ONE (20:23)
[2023-07-13] MEDS ORDERED: MORPHINE SULFATE 4 MG INJ ONE ×2 (20:24→21:11)
[2023-07-13] MEDS ORDERED: Sodium Chloride 0.9% 1000 ML 1,000 ML ONE (20:24)
[2023-07-13 20:30] LABS: Absolute Neutrophil Ct (ANC) 5.94 x10^3/uL (1.4-6.9); BASOPHIL % 0.5 % (0.0-0.4); Basophil (Absolute #) 0.05 x10^3/uL (0-0.4); Eosinophil % 1.4 % (0.00-5.0); Eosinophil (Absolute #) 0.14 x10^3/uL (0-0.5); Hemoglobin 12.9 g/dL (12.0-16.0); IMMATURE GRAN # 0.05 x10^3u/L (0.00-0.03); IMMATURE GRAN % 0.5 % (0.00-0.4); Lymphocyte (Absolute #) 2.94 x10^3/uL (1.0-4.6); Lymphocytes % 29.8 % (24.0-44.0); Mean Cell Volume 95.8 fL (78-100); Mean Corpuscular Hemoglobin 31.7 pg (26-32); Mean Corpuscular Hgb Concent. 33.1 g/dL (32-36); Mean Platelet Volume 10.2 fL (7.5-11.0); Monocyte (Absolute #) 0.74 x10^3/uL (0.0-1.3); Monocytes % 7.5 % (0.0-12.0); Neutrophil % 60.3 % (36.0-66.0); Platelet Count 245 x10^3/uL (150-450); Red Blood Count 4.07 x10^6/uL (4.1-5.4); White Blood Count 9.9 x10^3/uL (4.0-10.5)
[2023-07-13 20:37] LABS: Appearance Clear (Clear); Bacteria None Seen /HPF (None Seen); Bilirubin Negative (Negative); Blood Negative (Negative); Epithelial Cells Rare /HPF (None Seen); Glucose, Urine Negative (Negative); Hyaline Casts NONE SEEN /LPF (0-2); Ketones Trace (Negative); Leukocyte Esterase Negative (Negative); Nitrite Negative (Negative); Ph 5.5 (4.6-8.0); Protein,Urine Dip Negative (Negative); RBC 0-2 /HPF (0-5); Specific Gravity >=1.030 (1.005-1.030); WBC 0-2 /HPF (0-5)
[2023-07-13 20:43] LABS: ADD URINE CULTURE? NO (NO)
[2023-07-13 20:44] LABS: HCG SERUM TEST NEGATIVE (NEGATIVE)
[2023-07-13 20:45] LABS: ALBUMIN 4.5 g/dL (3.5-5.0); ANION GAP 10.7 MEQ/L (5-15); BILIRUBIN,TOTAL 0.9 mg/dL (0.2-1.3); Calcium 9.1 mg/dL (8.4-10.2); Creatinine 1 0.72 mg/dL (0.52-1.04); EST GLOMERULAR FILTRATION RATE 104.4 ML/MIN; Potassium 3.7 mmol/L (3.5-5.1)
--- NOTE | 2023-07-13 20:59 | ERPHSYRPT ---
- History of Present Illness Time Seen by Provider: 07/13/23 20:01 Historian: patient, family Exam Limitations: no limitations Patient Subjective Stated Complaint: pt states that this morning around 0800 she woke up with "gall bladder" pain that is right lateral upper abdomen/ side/ flank area which is consistent with prior gall bladder "attacks" and she describes it as constant ache. as the day went on the pain increased to "intolerable" which led her to come to the ED. pt states she has known "gall bladder sludge" and has had full work up but hasn't followed up for > 1yr. around 1500 today she ate taco flores, at approx 1700 she did 2 jagerbombs, and she has smoked marijuana today. and this evening she has been eating Raghav candy that her has been making. Triage Nursing Assessment: pt ambulated into room 6 independently with a slow steady gait after using restroom to provide urine sample for lab testing. pt is alert and oriented times three, able to move all extremities, able to speak in complete sentences, and with resp even and unlabored. pt grasping at her right side, grimacing, and moaning/ crying intermittently. abd soft, tender to palpation on right side only, obese, and with positive bowel sounds in all quadrants. pt states her last BM was earlier this evening and has eaten and drank today per her usual. denies cp, sob, difficulty breathing, lightheadedness, dizziness, difficulty with urination or bowel elimination, n/v, or other ill feelings. Physician History: 47 years old female with history of biliary colic in the past presented in the ER with chief complaint of right-sided abdominal pain since she woke up around 8 this morning. Patient reports constant pain with progressive worsening, severe sharp, nonradiating, aggravated with palpation and movements, unable to find a comfortable spot. Report associated some nausea but no vomiting or diarrhea reported. Reports having similar symptoms multiple times in the past with gallbladder attack and does have history of gallbladder sludge. No history of kidney stones. Denies any UTI symptoms. No fever or chills reported. Denies any known sick contact. Allergies/Adverse Reactions: cephalexin [From Keflex] Allergy (Unknown, Verified 07/13/23 19:59) Hives Home Medications: Omeprazole 40 mg PO DAILY 03/30/22 [History] Bupropion HCl Xl 150 mg [Wellbutrin XL 150 MG] 150 mg PO DAILY 01/04/23 [History] Buspirone HCl 5 mg [Buspar 5 mg] 10 mg PO DAILY 04/04/23 [History] Hx Tetanus, Diphtheria Vaccination/Date Given: No Hx Influenza Vaccination/Date Given: No Hx Pneumococcal Vaccination/Date Given: No Immunizations Up to Date: No Travel Risk - International Travel Have you traveled outside of the country in past 3 weeks: No - Coronavirus Screening Are you exhibiting any of the following symptoms?: No Close contact with a COVID-19 positive Pt in past 14-21 Days: No - Vaccine Status Have you recieved a Covid-19 vaccination: No - Review of Systems Constitutional: No Symptoms Eyes: No Symptoms Ears, Nose, & Throat: No Symptoms Respiratory: No Symptoms Cardiac: No Symptoms Abdominal/Gastrointestinal: Abdominal Pain Genitourinary Symptoms: No Symptoms Musculoskeletal: No Symptoms Skin: No Symptoms Neurological: No Symptoms Endocrine: No Symptoms Hematologic/Lymphatic: No Symptoms Immunological/Allergic: No Symptoms - Past Medical History Pertinent Past Medical History: Yes Neurological History: No Pertinent History ENT History: No Pertinent History Cardiac History: No Pertinent History Respiratory History: No Pertinent History Endocrine Medical History: No Pertinent History Musculoskeletal History: No Pertinent History GI Medical History: Diverticulitis, Diverticulosis, GERD, Pancreatitis History: No Pertinent History Psycho-Social History: Depression, Panic Disorder Female Reproductive Disorders: Other Other Medical History: sludge in gallbladder, iud - Past Surgical History Past Surgical History: Yes Neuro Surgical History: No Pertinent History Cardiac: No Pertinent History Respiratory: No Pertinent History Gastrointestinal: No Pertinent History Genitourinary: Other Musculoskeletal: No Pertinent History Female Surgical History: Other Other Surgical History: LEEP , cscope, bladder sling - Social History Smoking Status: Never smoker Exposure to second hand smoke: No Drug Use: marijuana Patient Lives Alone: No - Female History Hx Last Menstrual Period: IUD Hx Now: (unkn) - Nursing Vital Signs Nursing Vital Signs: Initial Vital Signs Pulse Rate 91 H 07/13/23 20:01 Respiratory Rate 20 07/13/23 20:01 Blood Pressure 171/103 07/13/23 20:01 O2 Sat by Pulse Oximetry 95 07/13/23 20:01 Pain Scale Pain Intensity 10 - Physical Exam General Appearance: no apparent distress, alert Eye Exam: PERRL/EOMI Ears, Nose, Throat Exam: normal ENT inspection Neck Exam: normal inspection, supple, full range of motion Respiratory Exam: normal breath sounds, lungs clear Cardiovascular Exam: regular rate/rhythm, normal heart sounds Gastrointestinal/Abdomen Exam: soft, normal bowel sounds, tenderness (Epigastrium/right upper quadrant/right flank.) Back Exam: normal inspection Extremity Exam: normal inspection, normal range of motion Neurologic Exam: alert, oriented x 3, cooperative Skin Exam: normal color SpO2 Interpretation: normal SpO2: 97 O2 Delivery: Room Air Ordered Tests: Active Orders 24 hr Category Date Time Status IV Insertion STAT Care 07/13/23 20:18 Active NPO (ED) STAT Care 07/13/23 20:18 Active ABDOMEN AND PELVIS W CONTRAST [CT] Stat Exams 07/13/23 20:19 Completed AMYLASE Stat Lab 07/13/23 20:20 Completed CBC W DIFF Stat Lab 07/13/23 20:20 Completed CMP Stat Lab 07/13/23 20:20 Completed HCG QUALITATIVE, SERUM Stat Lab 07/13/23 20:20 Completed LIPASE Stat Lab 07/13/23 20:20 Completed UA W/RFX UR CULTURE Stat Lab 07/13/23 20:22 Completed Medication Summary Discontinued Medications Generic Name Dose Route Start Last Admin Trade Name Salty PRN Reason Stop Dose Admin Sodium Chloride 1,000 mls @ 999 mls/hr 07/13/23 20:18 07/13/23 21:30 Sodium Chloride 0.9% 1000 Ml IV 07/13/23 21:18 Infused .Q1H1M STA Infusion Sodium Chloride Confirm 07/13/23 20:24 Sodium Chloride 0.9% 1000 Ml Administered 07/13/23 20:25 Dose 1,000 mls @ ud .ROUTE .STK-MED ONE Morphine Sulfate 4 mg 07/13/23 20:18 07/13/23 20:34 Morphine Sulfate 4 Mg/Ml Injection IV 07/13/23 20:19 4 mg STAT ONE Administration Morphine Sulfate Confirm 07/13/23 20:24 Morphine Sulfate 4 Mg/Ml Injection Administered 07/13/23 20:25 Dose 4 mg .ROUTE .STK-MED ONE Morphine Sulfate 4 mg 07/13/23 21:07 07/13/23 21:13 Morphine Sulfate 4 Mg/Ml Injection IV 07/13/23 21:08 4 mg STAT ONE Administration Morphine Sulfate Confirm 07/13/23 21:11 Morphine Sulfate 4 Mg/Ml Injection Administered 07/13/23 21:12 Dose 4 mg .ROUTE .STK-MED ONE Ondansetron HCl 4 mg 07/13/23 20:18 07/13/23 20:32 Ondansetron Hcl 4 Mg/2 Ml Vial IV 07/13/23 20:19 4 mg STAT ONE Administration Ondansetron HCl Confirm 07/13/23 20:23 Ondansetron Hcl 4 Mg/2 Ml Vial Administered 07/13/23 20:24 Dose 4 mg .ROUTE .STK-MED ONE Pantoprazole Sodium 40 mg 07/13/23 20:18 07/13/23 20:40 Pantoprazole 40 Mg Vial IV 07/13/23 20:19 40 mg STAT ONE Administration Pantoprazole Sodium Confirm 07/13/23 20:23 Pantoprazole 40 Mg Vial Administered 07/13/23 20:24 Dose 40 mg IV .STK-MED ONE Lab/Rad Data: Laboratory Result Diagrams 07/13/23 20:20 07/13/23 20:20 Laboratory Results 07/13/23 07/13/23 07/13/23 Range/Units 20:22 20:20 20:20 WBC (4.0-10.5) x10^3/uL RBC (4.1-5.4) x10^6/uL Hgb (12.0-16.0) g/dL Hct (35-47) % MCV (78-100) fL MCH (26-32) pg MCHC (32-36) g/dL RDW (11.5-14.0) % Plt Count (150-450) x10^3/uL MPV (7.5-11.0) fL Gran % (36.0-66.0) % Immature Gran % (Auto) (0.00-0.4) % Nucleat RBC Rel Count (0.00-0.1) % Eos # (Auto) (0-0.5) x10^3/uL Immature Gran # (Auto) (0.00-0.03) x10^3u/L Absolute Lymphs (auto) (1.0-4.6) x10^3/uL Absolute Monos (auto) (0.0-1.3) x10^3/uL Absolute Nucleated RBC (0.00-0.01) x10^3u/L Lymphocytes % (24.0-44.0) % Monocytes % (0.0-12.0) % Eosinophils % (0.00-5.0) % Basophils % (0.0-0.4) % Absolute Granulocytes (1.4-6.9) x10^3/uL Basophils # (0-0.4) x10^3/uL Sodium 138 (137-145) mmol/L Potassium 3.7 (3.5-5.1) mmol/L Chloride 105 (98-107) mmol/L Carbon Dioxide 26 (22-30) mmol/L Anion Gap 10.7 (5-15) MEQ/L BUN 11 (7-17) mg/dL Creatinine 0.72 (0.52-1.04) mg/dL Estimated GFR 104.4 ML/MIN Glucose 114 H (74-106) mg/dL Calcium 9.1 (8.4-10.2) mg/dL Total Bilirubin 0.90 (0.2-1.3) mg/dL AST 44 H (14-36) U/L ALT 29 (0-35) U/L Alkaline Phosphatase 70 (38-126) U/L Serum Total Protein 8.0 (6.3-8.2) g/dL Albumin 4.5 (3.5-5.0) g/dL Amylase 51 (30-110) U/L Lipase 40 (23-300) U/L Serum HCG, Qual NEGATIVE (NEGATIVE) Urine Color Yellow (Yellow) Urine Appearance Clear (Clear) Urine pH 5.5 (4.6-8.0) Ur Specific [place] >=1.030 A (1.005-1.030) Urine Protein Negative (Negative) Urine Glucose (UA) Negative (Negative) mg/dL Urine Ketones Trace A (Negative) Urine Blood Negative (Negative) Urine Nitrite Negative (Negative) Urine Bilirubin Negative (Negative) Urine Urobilinogen 1.0 A (0.2) mg/dL Ur Leukocyte Esterase Negative (Negative) U Hyaline Cast (Auto) NONE SEEN (0-2) /LPF Urine Microscopic RBC 0-2 (0-5) /HPF Urine Microscopic WBC 0-2 (0-5) /HPF Ur Epithelial Cells Rare (None Seen) /HPF Urine Bacteria None Seen (None Seen) /HPF Urine Culture Reflexed NO (NO) 07/13/23 Range/Units 20:20 WBC 9.9 (4.0-10.5) x10^3/uL RBC 4.07 L (4.1-5.4) x10^6/uL Hgb 12.9 (12.0-16.0) g/dL Hct 39.0 (35-47) % MCV 95.8 (78-100) fL MCH 31.7 (26-32) pg MCHC 33.1 (32-36) g/dL RDW 12.0 (11.5-14.0) % Plt Count 245 (150-450) x10^3/uL MPV 10.2 (7.5-11.0) fL Gran % 60.3 (36.0-66.0) % Immature Gran % (Auto) 0.5 H (0.00-0.4) % Nucleat RBC Rel Count 0.0 (0.00-0.1) % Eos # (Auto) 0.14 (0-0.5) x10^3/uL Immature Gran # (Auto) 0.05 H (0.00-0.03) x10^3u/L Absolute Lymphs (auto) 2.94 (1.0-4.6) x10^3/uL Absolute Monos (auto) 0.74 (0.0-1.3) x10^3/uL Absolute Nucleated RBC 0.00 (0.00-0.01) x10^3u/L Lymphocytes % 29.8 (24.0-44.0) % Monocytes % 7.5 (0.0-12.0) % Eosinophils % 1.4 (0.00-5.0) % Basophils % 0.5 (0.0-0.4) % Absolute Granulocytes 5.94 (1.4-6.9) x10^3/uL Basophils # 0.05 (0-0.4) x10^3/uL Sodium (137-145) mmol/L Potassium (3.5-5.1) mmol/L Chloride (98-107) mmol/L Carbon Dioxide (22-30) mmol/L Anion Gap (5-15) MEQ/L BUN (7-17) mg/dL Creatinine (0.52-1.04) mg/dL Estimated GFR ML/MIN Glucose (74-106) mg/dL Calcium (8.4-10.2) mg/dL Total Bilirubin (0.2-1.3) mg/dL AST (14-36) U/L ALT (0-35) U/L Alkaline Phosphatase (38-126) U/L Serum Total Protein (6.3-8.2) g/dL Albumin (3.5-5.0) g/dL Amylase (30-110) U/L Lipase (23-300) U/L Serum HCG, Qual (NEGATIVE) Urine Color (Yellow) Urine Appearance (Clear) Urine pH (4.6-8.0) Ur Specific [place] (1.005-1.030) Urine Protein (Negative) Urine Glucose (UA) (Negative) mg/dL Urine Ketones (Negative) Urine Blood (Negative) Urine Nitrite (Negative) Urine Bilirubin (Negative) Urine Urobilinogen (0.2) mg/dL Ur Leukocyte Esterase (Negative) U Hyaline Cast (Auto) (0-2) /LPF Urine Microscopic RBC (0-5) /HPF Urine Microscopic WBC (0-5) /HPF Ur Epithelial Cells (None Seen) /HPF Urine Bacteria (None Seen) /HPF Urine Culture Reflexed (NO) - Progress Progress: improved, re-examined Progress Note: 07/13/23 22:27 47 years old female is evaluated for right-sided abdominal pain with nausea but no vomiting. She had tenderness on initial exam but no guarding or rebound. She is given fluids and symptomatic treatment, on reevaluation her pain is improved and no peritoneal signs. Normal white count, unremarkable chemistries with normal bilirubin. Normal lipase. No UTI. CT abdomen pelvis with contrast is negative for any acute intra-abdominal pelvic findings. Patient could have a calculus biliary symptoms but less likely as her previous ultrasound I have reviewed and it was negative as well. Do not know the exact cause of her pain but have ruled out all the major emergencies. She is advised to take Tylenol ibuprofen as needed and take Zofran as needed. Discussed signs symptoms of worsening needing return to ER which she seems understanding. Stable for discharge. Counseled pt/family regarding: lab results, diagnosis, need for follow-up, rad results Medical Desision Making - Independent Historian Additional History obtained from: Spouse - Diagnostic Testing Diagnostic test were ordered, analyzed, and reviewed by me: Yes Radiological Interpretation: Reviewed by me, Teleradiologist Report - Risk of complications The pt has a mod risk of morbidity or mortality based on: Need for prescription drug management - Departure Departure Disposition: Home Clinical Impression: Right sided abdominal pain Condition: Stable Critical Care Time: No Referrals: LINDA BENDER NP [Primary Care Provider] - Follow up with PCP 2 days Instructions: Flank Pain, Severe Abdominal Pain, Adult (DC) Additional Instructions: Take Tylenol/ibuprofen as needed for pain. Take Zofran as needed for nausea or vomiting. Follow-up with primary care for reevaluation. Return to ER for any worsening pain/intractable nausea vomiting/fever chills etc. Prescriptions: Ondansetron ODT 4 MG [Zofran Odt 4 mg] 1 ea PO QIDPRN PRN #7 tablet PRN Reason: n/v
[2023-07-13 21:07] VITALS: BP 150/95; PULSE 91; RESP 16
--- NOTE | 2023-07-13 22:12 | XRAY ---
CLINICAL HISTORY:right side abd pain COMPARISON:01/04/2023. TECHNIQUE:Contiguous axial images were obtained from the level of the diaphragm to the pubic symphysis with intravenous contrast. Coronal and sagittal reconstructions were likewise performed and indicated to increase the sensitivity for detecting clinically relevant pathology. If IV contrast material had not been administered, the likelihood of detecting abnormalities relevant to the patient's condition would have been substantially decreased. CT scan was performed according to ALARA (as low as reasonably achievable). FINDINGS: The visualized lung bases are clear. The liver is normal in size and attenuation. No focal liver lesions are seen. There is no intra or extrahepatic biliary ductal dilatation. Hepatic vasculature is patent. The gallbladder is present. The spleen, pancreas, and adrenal glands are unremarkable. The kidneys are normal in size and attenuation. There is no hydronephrosis or perinephric fat stranding. No renal calculi or renal masses are identified. The ureters are normal in caliber and no ureteral calculi are seen. The bladder is normal in contour. A well placed intrauterine contraceptive device is seen in the endometrial cavity. The pelvic viscera are otherwise unremarkable. No adenopathy or fluid collections are seen. No evidence of focal or diffuse bowel wall thickening or evidence of bowel obstruction is seen. The appendix is visualized in the right lower quadrant and appears within normal limits. Abdominal and pelvic vasculature is patent. No aggressive appearing osseous lesions are identified. IMPRESSION: 1. No obvious acute cause of abdominal pain - patient's symptoms, identified in the present scan. No significant interval change seen since prior study. Electronically Signed by: Dr. Dong Child MD. (07/13/2023 22:08:04 EST)
== END 2023-07-13 22:41 | disposition home or self-care (01) ==
LOC: ED 19:51
DX: R10.11 Right upper quadrant pain (principal); R10.31 Right lower quadrant pain; R11.0 Nausea; Z79.899 Other long term (current) drug therapy; Z28.310 Unvaccinated for COVID-19
CPT/HCPCS: 36000; 36415; 74177; 80053; 81001; 82150; 83690; 84703; 85025; 96360; 96374; 96375; 99284; J2270; J2405

== ENCOUNTER 2023-08-18 08:13 | Day surgery (SDC) | payer BC ==
[~2023-08-18 08:13] MED LIST: Sensorcaine 0.25% 10 ML ONE
[2023-08-18] MEDS ORDERED: Lactated Ringers 1,000 ML IV ONE (08:56)
[2023-08-18 08:59] LABS: HCG URINE TEST NEGATIVE (NEGATIVE)
[2023-08-18] MEDS ORDERED: Lactated Ringers 1,000 ML IV SCH (09:00)
[2023-08-18] MEDS ORDERED: Levofloxacin 500MG/100ML D5W 500 MG/100 ML BAG IV SCH (09:00)
[2023-08-18] MEDS ORDERED: CLINDAMYCIN-D5W 900 MG/50 ML*** 900 MG/50 ML BAG IV SCH (09:00)
[2023-08-18 09:29] VITALS: RESP 18
--- NOTE | 2023-08-18 09:41 | HP ---
DATE OF SURGERY: 08/18/2023 HISTORY OF PRESENT ILLNESS: The patient is a 47-year-old female with right upper quadrant pain. Ultrasound reportedly showed no stones. She had HIDA of 24%. I feel she has chronic cholecystitis, acute exacerbation of biliary dyskinesia. She denies any liver problems. She does have history of pancreatitis in early 2022. No change in bowel movements currently. PAST MEDICAL HISTORY: Anxiety, depression, diabetes mellitus type II and eczema. She wears corrective lenses. She had some bladder issues and is seen by Dr. Leon. PAST SURGICAL HISTORY: LEEP. EGD. Colonoscopy. Bladder sling. MEDICATIONS: Multivitamin, metformin, omeprazole, Wellbutrin. ALLERGIES: CEPHALEXIN (HIVES). FAMILY HISTORY: Negative in regards to this problem. SOCIAL HISTORY: No smoking. Occasional alcohol use. Occasional marijuana. REVIEW OF SYSTEMS: Twelve systems reviewed. No chest pain or palpitations. Other systems negative or noncontributory as above and per preadmission questionnaire. PHYSICAL EXAMINATION: Height 5 feet 6 inches. BMI 30.67. GENERAL: No acute distress. HEENT: Sclerae nonicteric. EOMI. Oral mucous membranes moist. NECK: No JVD. CHEST: Equal excursion, nonlabored breathing. CVS: Regular rate and rhythm. ABDOMEN: Soft, some mild right upper quadrant tenderness. No peritoneal signs. EXTREMITIES: No cyanosis or edema. NEURO: Alert, oriented, moving extremities symmetrically. PSYCH: Appropriate mood and affect. SKIN: Dry. IMPRESSION: Acute exacerbation chronic cholecystitis, symptomatic biliary dyskinesia. I feel the patient is in need of cholecystectomy. Risks explained in detail including but not limited to bleeding or infection, risk of trocar injury or hernia, risk of bile leak, bile duct injury, retained stone or sludge possibly requiring further procedure either open or ERCP, general risk of anesthesia, deep venous thrombosis, pulmonary embolism, pneumonia, perioperative risk of aches, pains, bloating, constipation and/or loose stools possibly even chronic in nature. Otherwise, continue medications for anxiety, depression, diabetes and eczema. Will plan laparoscopic cholecystectomy possible open as an outpatient under general anesthesia.
[2023-08-18] MEDS ORDERED: Versed 2 MG/2 ML Injection ONE (11:06)
[2023-08-18] MEDS ORDERED: Pre-Attached Lta Kit TP ONE (11:08)
[2023-08-18] MEDS ORDERED: OFIRMEV 100 ML IV ONE (11:08)
[2023-08-18] MEDS ORDERED: DIPRIVAN 200 MG/20 ML IV ONE (11:09)
[2023-08-18] MEDS ORDERED: TORAdol 30 mg Injection ONE (11:09)
[2023-08-18] MEDS ORDERED: Zemuron 100 MG/10 ML ONE (11:09)
[2023-08-18] MEDS ORDERED: DEXMEDETOMIDINE 80 MCG/20ML-NS IV ONE (11:09)
[2023-08-18] MEDS ORDERED: Xylocaine-Mpf 2% 5 Ml Vial ONE (11:09)
[2023-08-18] MEDS ORDERED: Zofran 4 MG/2 ML VIAL ONE (11:09)
[2023-08-18] MEDS ORDERED: Decadron 4 MG INJ ONE (11:09)
[2023-08-18] MEDS ORDERED: SUBLIMAZE 100 MCG/2 ML ONE ×2 (11:10→12:25)
[2023-08-18] MEDS ORDERED: BRIDION 200MG/2ML IV ONE (11:55)
[2023-08-18 13:20] VITALS: TEMP 97.6; O2SAT 97
[2023-08-18 13:36] VITALS: BP 106/76; PULSE 68
--- NOTE | 2023-08-19 08:26 | OP ---
SURGERY DATE/TIME: 08/18/2023 1106 PREOPERATIVE DIAGNOSIS: Acute exacerbation of chronic cholecystitis, symptomatic biliary dyskinesia. POSTOPERATIVE DIAGNOSIS: Acute exacerbation of chronic cholecystitis, symptomatic biliary dyskinesia. PROCEDURE: Laparoscopic cholecystectomy. SURGEON: Dr. Daniele Valera. ANESTHESIA: General. ESTIMATED BLOOD LOSS: Minimal. INDICATIONS: As noted above. Risks and benefits explained in detail but not limited to and consent obtained. DESCRIPTION OF PROCEDURE AND FINDINGS: The patient was taken to the operating room. General anesthesia induced. Dissected posterior, lateral to anterior fashion slowly and carefully the cystic duct and infundibular junction carefully well skeletonized until the critical view was obtained both anteriorly and posteriorly. Once this is accomplished, the cystic artery clipped x3 and divided in the usual fashion. Cystic duct clipped x3 and divided in usual fashion directly on the gallbladder wall. The gallbladder is slowly and carefully dissected free from its dense attachments to the liver bed staying directly on the gallbladder wall. A little bit of vascular area requiring additional oozing side branches off the cystic artery or vein as necessary directly on the gallbladder wall. It took some time but slowly and carefully accomplished. Just prior to releasing from final attachments to the anterior edge of the liver, the liver bed re-inspected. Clips noted to be in place in the cystic duct and cystic artery stumps. No signs of any active bleeding or bile leakage. It was felt there is no benefit of drain placement. The gallbladder was released, placed in the provided sac pulled up and out the supraumbilical port site and passed off. The fascial defect was then closed with puncture closure device with #1 Vicryl. Liver bed re-inspected. Irrigation clear. Liver bed re-inspected. Clips noted to be in place cystic duct and cystic artery stumps. No signs of any active bleeding or bile leakage. It was felt there was no benefit in drain placement. At this point pneumoperitoneum decompressed. The fascial defect at the 10/11 site is closed with #1 Vicryl under direct vision with the puncture closure device. Pneumoperitoneum decompressed. The wound irrigated out. Skin incision closed with 4-0 Vicryl. Steri-Strips and sterile dressing applied. 0.25% Marcaine local injected along the skin incision fascial defect. The patient tolerated the procedure well. There were no immediate complications. I went out to the waiting room to look to see if she had family out there.
== END 2023-08-18 13:40 | disposition home or self-care (01) ==
LOC: SDC 08:13
PROVIDERS: ATTEND Surgery
DX: K81.2 Acute cholecystitis with chronic cholecystitis (principal); K82.8 Other specified diseases of gallbladder; E11.9 Type 2 diabetes mellitus without complications
CPT/HCPCS: 81025; 82947; J1100; J1885; J1956; J2250; J2405; J2704; J3010